=== PATIENT | female | born 1930 | race Caucasian/White ===

== ENCOUNTER 2016-04-11 14:40 | Emergency (ER) | payer MEDICARE, BC ==
[2014-12-17 09:44] VITALS: BMI 21.7
[~2016-04-11 14:40] MED LIST: ARICEPT5 MG PO; CIPRO250 MG PO; COSOPT EYE DROPS5 ML EACH EYE; HYDRALAZINE HCL10 MG PO; LOPRESSOR25 MG PO; TRAZODONE HCL50 MG PO; XALATAN 0.0052.5 ML EACH EYE
[2016-04-11 15:21] LABS: BASOPHILS 0.3 % (0.0-2.0); EOSINOPHILS 0.8 % (0-7); HEMATOCRIT 37.6 % (36.0-48.0); HEMOGLOBIN 12.1 g/dL (12-16); IMMATURE GRANULOCYTES 0.3 % (0-5); LYMPHOCYTES 25.3 % (15-50); MCH 31.1 pg (26.0-34.0); MCHC 32.2 g/dL (31.0-37.0); MCV 96.7 fL (80.0-100.0); MEAN PLATELET VOLUME 9.3 fL (7.4-10.4); MONOCYTES 12.9 % (2-11); NEUTROPHILS 60.4 % (40-80); PLATELET COUNT 231 10x3/uL (130-400); RBC 3.89 10x6/uL (4.00-5.40); RDW 13.7 % (11.5-14.5); WBC 7.2 10x3/uL (4.8-10.8)
[2016-04-11 15:36] LABS: ALBUMIN 3.5 g/dL (3.4-5.0); ALKALINE PHOSPHATASE 84 U/L (46-116); ALT (SGPT) 25 U/L (10-68); BILIRUBIN - TOTAL 0.15 mg/dL (0.2-1.3); CALC OSMOLALITY 270 mosm/kg (275-300); CALCIUM 8.6 mg/dL (8.5-10.1); CARBON DIOXIDE 23.3 mmol/L (21.0-32.0); CHLORIDE - SERUM 101 mmol/L (98-107); GLUCOSE 96 mg/dL (74-106); POTASSIUM - SERUM 3.9 mmol/L (3.5-5.1); PROTEIN - SERUM 6.5 g/dL (6.4-8.2); SODIUM 135 mmol/L (136-145); UREA NITROGEN 14 mg/dL (7-18); eGFR NON AFRICAN AMERICAN 55 mL/min (90-120)
[2016-04-11 15:45] LABS: CREATINE KINASE 51 UL (21-215); PRO BNP 341 pg/mL (0-450)
[2016-04-11 15:47] LABS: TROPONIN-I < 0.017 ng/mL (0.000-0.060)
== END 2016-04-11 17:20 | disposition home or self-care (01) ==
LOC: D.ER 14:40
PROVIDERS: Emergency Medicine
DX: R09.02 Hypoxemia (principal); C50.919 Malignant neoplasm of unspecified site of unspecified female breast; I10 Essential (primary) hypertension

== ENCOUNTER 2016-04-14 21:14 | Inpatient (IN) | payer MEDICARE, BC ==
[~2016-04-14] VITALS: Ht 158.8 cm; Wt 50.4 kg
[2016-04-14 22:06] LABS: BASOPHILS 0.3 % (0.0-2.0); HEMATOCRIT 37.7 % (36.0-48.0); HEMOGLOBIN 12.1 g/dL (12-16); IMMATURE GRANULOCYTES 0.2 % (0-5); LYMPHOCYTES 24.9 % (15-50); MCH 31.2 pg (26.0-34.0); MCHC 32.1 g/dL (31.0-37.0); MCV 97.2 fL (80.0-100.0); MEAN PLATELET VOLUME 9.1 fL (7.4-10.4); MONOCYTES 13.4 % (2-11); NEUTROPHILS 60.2 % (40-80); PLATELET COUNT 263 10x3/uL (130-400); RBC 3.88 10x6/uL (4.00-5.40); RDW 13.7 % (11.5-14.5); WBC 9.8 10x3/uL (4.8-10.8)
[2016-04-14 22:36] LABS: ALBUMIN 3.8 g/dL (3.4-5.0); ALKALINE PHOSPHATASE 82 U/L (46-116); ALT (SGPT) 24 U/L (10-68); CALC OSMOLALITY 269 mosm/kg (275-300); CARBON DIOXIDE 23.8 mmol/L (21.0-32.0); CHLORIDE - SERUM 100 mmol/L (98-107); GLUCOSE 94 mg/dL (74-106); POTASSIUM - SERUM 3.9 mmol/L (3.5-5.1); PROTEIN - SERUM 7.2 g/dL (6.4-8.2); SODIUM 135 mmol/L (136-145); UREA NITROGEN 12 mg/dL (7-18); eGFR NON AFRICAN AMERICAN 55 mL/min (90-120)
[2016-04-14 22:45] LABS: PRO BNP 214 pg/mL (0-450); TROPONIN-I < 0.017 ng/mL (0.000-0.060)
[2016-04-14 22:47] LABS: APPEARANCE CLEAR (CLEAR); COLOR YELLOW (YELLOW)
[2016-04-14 22:48] LABS: BILIRUBIN NEGATIVE (NEGATIVE); GLUCOSE NEGATIVE (NEGATIVE); KETONE NEGATIVE (NEGATIVE); LEUKOCYTE ESTERASE NEGATIVE (NEGATIVE); NITRITE NEGATIVE (NEGATIVE); PROTEIN NEGATIVE (NEGATIVE); UROBILINOGEN NORMAL (NORMAL)
[2016-04-15] MEDS ORDERED: CHOLESTYRAMIN4 G/PK1 PO (02:00)
--- NOTE | 2016-04-15 02:00 | NUR ---
PT ARRIVES FROM ER VIA WC TO ROOM 2126. PLACED ON TELE, HR 50'S AND CAF. PT IS SLOW TO PROCESS, ANSWERS ALL QUESTIONS APPROPRIATELY. PT IS ALERT AND ORIENTED X4. MEDICATION RECONCILIATION COMPLETED AT THE BEDSIDE. ADMISSION ASSESSMENT AND HISTORY COMPLETED. CALL LIGHT PLACED WITHIN REACH. WILL CONT TO MONITOR.
[2016-04-15] MEDS ORDERED: BAYER CHEWABLE81 MG PO (02:01)
[2016-04-15 02:02] VITALS: BP 129/69
[2016-04-15 05:59] VITALS: BP 134/54
--- NOTE | 2016-04-15 07:05 | NUR ---
PT ASSISTED TO BATHROOM PER SON TOLERATING WELL NAD NOTED
[2016-04-15 07:41] VITALS: BP 154/76
--- NOTE | 2016-04-15 08:25 | NUR ---
AM MEDS GIVEN PT TOLERATED WELL
[2016-04-15 12:05] VITALS: BP 145/67
[2016-04-15 13:01] VITALS: Ht 158.8 cm; Wt 50.4 kg
--- NOTE | 2016-04-15 14:02 | NUR ---
SCD'S ON BILATERAL LE
[2016-04-15 14:20] LABS: T4 THYROXIN - FREE 1.42 ng/dL (0.76-1.46); THYROID STIMULATING HORMONE 0.9 uIU/mL (0.36-3.74)
--- NOTE | 2016-04-15 15:40 | NUR ---
CALMOSEPTINE APPLIED TO PERINIUM REDNESS AND EXCORIATION PT TOLERATED WELL STATES FEELS MUCH BETTER
[2016-04-15 16:05] VITALS: BP 157/65
--- NOTE | 2016-04-15 19:00 | NUR ---
RECEIVED REPORT AND ASSUMED PT CARE FROM DAY SHIFT NURSE @ THIS TIME.
[2016-04-15 20:37] VITALS: BP 155/75
[2016-04-16 00:52] VITALS: BP 129/60
[2016-04-16 05:04] VITALS: BP 111/62
--- NOTE | 2016-04-16 07:30 | NUR ---
RESTING QUIETLY AAOX4 DENIES ANY NEEDS OR DISCOMFORT NAD NOTED BED LOW POSITION CALL LIGHT IN REACH BED ALARM ON SCDs ON AND PATENT
[2016-04-16 08:23] VITALS: BP 154/79
--- NOTE | 2016-04-16 09:29 | NUR ---
Patient Name: MARIO GREENE Admission Status: ER Admission Date: 04-15-2016 : 1930 Admission Diagnosis:WEAKNESS Attending: CESAR Current LOS: 1 Anticipated DC Date: 04-16-2016 Planned Disposition: Primary Insurance: MEDICARE A & B Discharge Planning Comments: CM met with patient to discuss discharge planning/needs. The patient told CM she resides alone at home and fell in her kitchen. CM spoke with patient's sister "Beena Langston" ([phone]) who states the patient resided in Independent Living at [facility] prior to this admission and that she had recently been discharged from [facility] just last week. Patient is currently pleasantly confused. CM left for patient's son "William Greene" ([phone]) to return call to in order to discuss discharge planning/needs. CM to follow and assist as needed. Speech Professor: Gilma Iraheta RN/LUANNE . Question Answer Score * How many steps to enter\\exit or inside your home? 15? 0 * PCP [facility] 0 * Pharmacy [facility]? 0 * Other Environment Independent Living at [facility] 0 * ADLs Partial Dependent 0 * Partial ADLs (Assistance needed) Ambulation Bathing Medication Management 0 * Equipment Bedside Commode Shower Chair Walker 0 * List name and contact numbers for known caregivers / representatives who currently or will assist patient after discharge: William Greene (son) [phone] Beena Langston 0 * Community resources currently utilized Home Health 0 * Please name any agencies selected above. [facility] (per pts sister) 0 * Additional services required to return to the preadmission environment? Yes 0 * Can the patient safely return to the preadmission environment? Yes 0 * Has this patient been hospitalized within the prior 30 days at any hospital? Yes 0 Grand Total: 0
--- NOTE | 2016-04-16 11:21 | NUR ---
LUANNE spoke with "Nemo" at [facility] ([phone]) and requested patient information be faxed to Vera ([phone] fax). Information faxed as requested. "Nemo" stated she has spoken to patient's son and will contact CM with determination. CM to follow and assist as needed. Gilma Iraheta RN/LUANNE
[2016-04-16 12:03] VITALS: BP 123/66
--- NOTE | 2016-04-16 14:03 | NUR ---
Patient Name: MARIO GAN Encounter No: [id number] : 1930 Primary Insurance: MEDICARE A & B Anticipated DC Date: 04-16-2016 Planned Disposition: External Planned Provider: : DCP follow-up note: CM spoke with patient's son "William" at bedside. Son states he has spoken with [facility] but decision is pending Dr. Gan's determination following consult. CM spoke with [facility] who states Psych consult was never received. Original consult printed and refaxed 04/16/16 at 1400. Case management will follow and assist as needed. Gilma Iraheta RN/CM
--- NOTE | 2016-04-16 14:22 | NUR ---
Patient Name: MARIO GAN Encounter No: [id number] : 1930 Primary Insurance: MEDICARE A & B Anticipated DC Date: 04-16-2016 Planned Disposition: External Planned Provider: : REYP follow-up note: LUANNE spoke with "Micah" in [facility] (ext [phone]) who verifies Dr. Gan's consult now received. LUANNE also spoke with "Uzma" in [facility] who states Dr. Dean is now production manufacturing worker for Dr. Gan. LUANNE also spoke with "Uzma" who will evaluate patient and communicate with Dr. Dean this afternoon. Case management will follow and assist as needed. Gilma Iraheta RN/LUANNE
--- NOTE | 2016-04-16 14:55 | NUR ---
assessed pt for dr. schmidt in regards to possible placement on retirement. pt was depressed but not suicidal. pt was oriented to person, place, and time. no aggression noted. when i asked pt if she would be willing to come to retirement if dr. schmidt felt she was appropriate, she said no, "i want to go home". pt does not meet criteria for retirement per dr. schmidt. social welfare research worker amanda maldonado from retirement helped to educate pt's son on discharge options and assistance.
--- NOTE | 2016-04-16 15:37 | NUR ---
Entered Type Comment Reviewer 04/16/2016 15:23 DCP: Discharge Planning Patient Name: RUTHIE GAN Encounter No: [id number] : 1930 Primary Insurance: MEDICARE A & B Anticipated DC Date: 04-16-2016 Planned Disposition: External Planned Provider: : JENN follow-up note: Psych Evaluation completed. Patient denied by Nursing Home. CM spoke with "Hermes" at [facility] ([phone]) who states they will accept patient back to [facility] with Resumption of Care per [facility] services. The patient's son "William Gan" states he will be the patient's transportation back to [facility]. Son also states his plan is to eventually move the patient to [facility]. CM spoke with "Ruthie" at [facility] ([phone]) and SHWETHA orders faxed to [place] ([phone] fax). CM to follow and assist as needed. Gilma Iraheta RN/LUANNE
[2016-04-16 15:58] VITALS: BP 158/70
--- NOTE | 2016-04-16 16:10 | NUR ---
Patient Name: MARIO GAN Encounter No: [id number] : 1930 Primary Insurance: MEDICARE A & B Anticipated DC Date: 04-16-2016 Planned Disposition: Home External Planned Provider: [facility] DCP follow-up note: CM CALLED [facility], , SPOKE TO JEOVANNY AND PROVIDED NOTICE OF DISCHARGE, FAXED DISCHARGE INFORMATION TO [facility] AT [phone]. PT'S SON REPORTS AGREEMENT WITH DISCHARGE PLAN, HE WILL TRANSPORT PT TO [facility] AT DISCHARGE TODAY. NO FURHTER DISCHARGE INFORMATION NEEDED. Margarito Welch, CASE MANAGEMENT
[2016-04-16] MEDS ORDERED: LEXAPRO5 MG PO (18:08)
--- NOTE | 2016-04-16 18:48 | NUR ---
[facility] DCD TO LFS WITH 20 GA IV CATH INTACT SITE FREE OF REDNESS OR EDEMA PT DISCHARGED HOME IN STABLE CONDITION LEFT UNIT VIA W/C WITH ALL PERSONAL BELONGINGS
--- NOTE | 2016-04-17 12:54 | CN ---
PATIENT NAME:MARIO GAN MEDICAL RECORD: [id number] : [birth year] LOCATION:[facility] D.2127 ADMIT DATE: 04/15/16 ACCOUNT: [id number] CONSULTING PHYSICIAN: YARED BA MD REFERRING PHYSICIAN: RADHA WALTERS MD DATE OF CONSULTATION: 04/16/2016 IDENTIFYING DATA: The patient is 86 years old and she is admitted to the hospital on a voluntary basis secondary to altered mental status. CHIEF COMPLAINT: None. HISTORY OF PRESENT ILLNESS: The patient is a very nice lady who is quite cooperative. She lives in an assisted living and apparently, she has exhibited some confusion and wandering behaviors there. She has recognition that she is having trouble, but is a little bit uncertain about specifics. She freely admits she is depressed, but says she is not suicidal. She freely admits that she is having trouble with her memory, but is minimizing the amount. She denies substance abuse and certainly has no psychotic symptoms or evidence of direct dangerousness to herself or others. MENTAL STATUS EXAMINATION: The patient is awake, alert and oriented to person, place, somewhat to time and somewhat to situation. Her mood is depressed. Her affect is constricted. Thought processes are circumstantial. Memory, concentration and abstraction abilities are moderately impaired and she denies any active intent to harm herself or others as well as overt psychotic symptoms. ASSESSMENT: 1. Senile dementia of the Alzheimer's type. 2. Major depressive disorder, moderate severity without psychotic features. PLAN: At this time, the patient is not acutely or directly dangerous. That is to say she is not out of touch with reality, not threatening to harm herself or others, and for this reason, does not meet Medicare criteria for inpatient evaluation. She certainly is in need of supervision and her safety could be in jeopardy if she is not properly supervised, but unfortunately that is not sufficient grounds for admitting her to the behavioral unit. She is taking Aricept and so clearly there has been suspicion of cognitive decline in the past. She is taking a low dose of trazodone and I suspect that is for its hypnotic effect rather than antidepressant effect. I would recommend adding Zoloft 50 mg daily to her current regimen. I would also recommend followup with Dr. Leida Haider for neuropsychological testing and I would recommend some sort of social economist intervention to ensure that she has adequate supervision. Psychiatric followup may or may not be necessary depending upon her response to the Zoloft and her personal preferences regarding the addition of another doctor to her treatment team. TRANSINT:[id number] Voice Confirmation ID: [id number] DOCUMENT ID: [id number] CONSULT REPORT [id number] MARIO GAN PETER MD at 1254 CC: [id number] DICTATION DATE: 04/16/16 1247 WARP COILER: 04/16/16 1418 DIS IN 04/16/16 [facility] [address] [place] [address]
== END 2016-04-16 18:48 | disposition home health service (06) | DRG 884 ==
LOC: D.ER 21:14 → D.M2 04-15 00:53
PROVIDERS: Family Medicine; ADMIT Family Medicine
DX: F03.90 Unspecified dementia, unspecified severity, without behavioral disturbance, psychotic disturbance, mood disturbance, and anxiety (principal); F32.1 Major depressive disorder, single episode, moderate; M48.54XD Collapsed vertebra, not elsewhere classified, thoracic region, subsequent encounter for fracture with routine healing; R41.0 Disorientation, unspecified; H40.9 Unspecified glaucoma; I10 Essential (primary) hypertension; L89.151 Pressure ulcer of sacral region, stage 1; Z85.3 Personal history of malignant neoplasm of breast; Z86.73 Personal history of transient ischemic attack (TIA), and cerebral infarction without residual deficits

== ENCOUNTER 2017-07-25 09:03 | Inpatient (IN) | payer MEDICARE, BC ==
[~2017-07-25] VITALS: Ht 157.5 cm; Wt 41.5 kg
[~2017-07-25 09:03] MED LIST changes: +BAYER CHEWABLE81 MG PO; +CHOLESTYRAMIN4 G/PK1 PO; +LEXAPRO5 MG PO
[2017-07-25 09:28] LABS: BASOPHILS 0.1 % (0-2); EOSINOPHILS 0.1 % (0-7); HEMATOCRIT 38.2 % (36.0-48.0); HEMOGLOBIN 12.9 g/dL (12-16); IMMATURE GRANULOCYTES 0.3 % (0-5); LYMPHOCYTES 13.8 % (15-50); MCH 31.5 pg (26.0-34.0); MCHC 33.8 g/dL (31.0-37.0); MCV 93.2 fL (80.0-100.0); MEAN PLATELET VOLUME 9.2 fL (7.4-10.4); MONOCYTES 13.9 % (2-11); NEUTROPHILS 71.8 % (40-80); RDW 13.4 % (11.5-14.5); WBC 15.4 10x3/uL (4.8-10.8)
[2017-07-25 09:30] LABS: PLATELET COUNT 349 10x3/uL (130-400)
[2017-07-25 09:51] LABS: ALBUMIN 2.8 g/dL (3.4-5.0); BILIRUBIN - TOTAL 0.6 mg/dL (0.2-1.3); CALCIUM 9.9 mg/dL (8.5-10.1); CARBON DIOXIDE 25.2 mmol/L (21.0-32.0); POTASSIUM - SERUM 3.2 mmol/L (3.5-5.1); PROTEIN - SERUM 8.4 g/dL (6.4-8.2)
[2017-07-25 12:14] LABS: APPEARANCE CLEAR (CLEAR); BILIRUBIN NEGATIVE (NEGATIVE); COLOR YELLOW (YELLOW); GLUCOSE NEGATIVE (NEGATIVE); KETONE MODERATE mg/dL (NEGATIVE); NITRITE NEGATIVE (NEGATIVE); PROTEIN TRACE mg/dL (NEGATIVE); UROBILINOGEN NORMAL (NORMAL)
[2017-07-25 12:15] LABS: BACTERIA MODERATE /hpf (NONE SEEN); EPITHELIAL CELLS 0-5 /hpf (0-5); GRANULAR CAST RARE /lpf (NONE SEEN); MUCUS >1+ /lpf (NONE SEEN); WHITE CELLS - URINE 0-5 /hpf (0-5)
[2017-07-25 19:49] VITALS: BP 161/108
[2017-07-25 20:03] VITALS: BP 189/123
[2017-07-25 22:56] VITALS: BMI 19.6
[2017-07-25 23:02] VITALS: BP 156/80
[2017-07-26 03:30] VITALS: BP 169/85
[2017-07-26 07:47] LABS: BASOPHILS 0.1 % (0-2); EOSINOPHILS 0.1 % (0-7); HEMATOCRIT 35.9 % (36.0-48.0); IMMATURE GRANULOCYTES 0.3 % (0-5); LYMPHOCYTES 8.1 % (15-50); MCH 31.2 pg (26.0-34.0); MCHC 33.4 g/dL (31.0-37.0); MCV 93.2 fL (80.0-100.0); MEAN PLATELET VOLUME 9.5 fL (7.4-10.4); MONOCYTES 13.3 % (2-11); NEUTROPHILS 78.1 % (40-80); PLATELET COUNT 319 10x3/uL (130-400); RBC 3.85 10x6/uL (4.00-5.40); RDW 13.7 % (11.5-14.5); WBC 14.3 10x3/uL (4.8-10.8)
[2017-07-26 08:09] LABS: CALC OSMOLALITY 270 mosm/kg (275-300); CALCIUM 9.6 mg/dL (8.5-10.1); CARBON DIOXIDE 23.3 mmol/L (21.0-32.0); CHLORIDE - SERUM 99 mmol/L (98-107); CREATININE - SERUM 0.7 mg/dL (0.6-1.3); GLUCOSE 95 mg/dL (74-106); POTASSIUM - SERUM 3.4 mmol/L (3.5-5.1); SODIUM 136 mmol/L (136-145); UREA NITROGEN 11 mg/dL (7-18); eGFR NON AFRICAN AMERICAN 83 mL/min (90-120)
[2017-07-26 15:20] VITALS: Ht 157.5 cm; Wt 41.5 kg
[2017-07-26 20:00] VITALS: BP 160/91
[2017-07-27] VITALS (7 sets, daily range): BP systolic 139–178; BP diastolic 63–92
[2017-07-27 06:15] LABS: BASOPHILS 0.1 % (0-2); EOSINOPHILS 0.1 % (0-7); HEMATOCRIT 35.6 % (36.0-48.0); IMMATURE GRANULOCYTES 0.3 % (0-5); LYMPHOCYTES 7.4 % (15-50); MCH 31.4 pg (26.0-34.0); MCHC 33.7 g/dL (31.0-37.0); MCV 93.2 fL (80.0-100.0); MEAN PLATELET VOLUME 9.4 fL (7.4-10.4); MONOCYTES 15.2 % (2-11); NEUTROPHILS 76.9 % (40-80); PLATELET COUNT 364 10x3/uL (130-400); RBC 3.82 10x6/uL (4.00-5.40); RDW 13.7 % (11.5-14.5); WBC 15.2 10x3/uL (4.8-10.8)
[2017-07-27 06:32] LABS: ALBUMIN 2.2 g/dL (3.4-5.0); ANION GAP 18.4 mmol/L (8-16); BILIRUBIN - TOTAL 0.5 mg/dL (0.2-1.3); CALCIUM 9.5 mg/dL (8.5-10.1); CARBON DIOXIDE 22.7 mmol/L (21.0-32.0); POTASSIUM - SERUM 3.1 mmol/L (3.5-5.1); PROTEIN - SERUM 7.2 g/dL (6.4-8.2)
[2017-07-28 04:05] VITALS: BP 171/78
[2017-07-28 05:09] LABS: BASOPHILS 0.2 % (0-2); EOSINOPHILS 0.9 % (0-7); HEMATOCRIT 36.2 % (36.0-48.0); IMMATURE GRANULOCYTES 0.2 % (0-5); LYMPHOCYTES 7.2 % (15-50); MCH 31.3 pg (26.0-34.0); MCHC 33.1 g/dL (31.0-37.0); MCV 94.5 fL (80.0-100.0); MEAN PLATELET VOLUME 9.5 fL (7.4-10.4); MONOCYTES 13.8 % (2-11); NEUTROPHILS 77.7 % (40-80); PLATELET COUNT 369 10x3/uL (130-400); RBC 3.83 10x6/uL (4.00-5.40); RDW 13.8 % (11.5-14.5); WBC 12.8 10x3/uL (4.8-10.8)
[2017-07-28 05:22] LABS: BILIRUBIN - TOTAL 0.19 mg/dL (0.2-1.3); CALCIUM 9.4 mg/dL (8.5-10.1); CREATININE - SERUM 0.8 mg/dL (0.6-1.3); PROTEIN - SERUM 7.1 g/dL (6.4-8.2)
[2017-07-28 08:05] VITALS: BP 92/57
[2017-07-28 11:49] VITALS: BP 145/69
[2017-07-28 16:05] VITALS: BP 89/48
[2017-07-28 19:54] VITALS: BP 163/60
[2017-07-29 01:30] VITALS: BP 150/65
[2017-07-29 04:40] VITALS: BP 142/78
[2017-07-29 05:57] LABS: BASOPHILS 0.2 % (0-2); EOSINOPHILS 0.1 % (0-7); HEMOGLOBIN 10.7 g/dL (12-16); IMMATURE GRANULOCYTES 0.3 % (0-5); LYMPHOCYTES 5.8 % (15-50); MCH 30.7 pg (26.0-34.0); MCHC 32.4 g/dL (31.0-37.0); MCV 94.6 fL (80.0-100.0); MEAN PLATELET VOLUME 9.2 fL (7.4-10.4); MONOCYTES 18.7 % (2-11); NEUTROPHILS 74.9 % (40-80); PLATELET COUNT 354 10x3/uL (130-400); RBC 3.49 10x6/uL (4.00-5.40); RDW 13.7 % (11.5-14.5); WBC 15.2 10x3/uL (4.8-10.8)
[2017-07-29 06:41] LABS: ALBUMIN 1.7 g/dL (3.4-5.0); BILIRUBIN - TOTAL 0.24 mg/dL (0.2-1.3); CALCIUM 9.1 mg/dL (8.5-10.1); CARBON DIOXIDE 29.5 mmol/L (21.0-32.0); CREATININE - SERUM 0.9 mg/dL (0.6-1.3); PROTEIN - SERUM 6.6 g/dL (6.4-8.2)
[2017-07-29 06:43] LABS: ANION GAP 10.3 mmol/L (8-16)
[2017-07-29 06:55] LABS: POTASSIUM - SERUM 2.8 mmol/L (3.5-5.1)
[2017-07-29 07:54] VITALS: BP 174/80
[2017-07-29 11:53] VITALS: BP 157/68
[2017-07-29 16:35] VITALS: BP 130/58
[2017-07-29 17:34] LABS: VANCOMYCIN - TROUGH 14.4 ug/mL (10.0-20.0)
[2017-07-29 20:20] VITALS: BP 154/106
[2017-07-30 00:41] VITALS: BP 157/71
[2017-07-30 05:57] VITALS: BP 141/97
[2017-07-30 06:47] LABS: BASOPHILS 0.3 % (0-2); EOSINOPHILS 1.4 % (0-7); HEMATOCRIT 32.6 % (36.0-48.0); HEMOGLOBIN 10.4 g/dL (12-16); IMMATURE GRANULOCYTES 0.2 % (0-5); LYMPHOCYTES 8.4 % (15-50); MCH 30.4 pg (26.0-34.0); MCHC 31.9 g/dL (31.0-37.0); MCV 95.3 fL (80.0-100.0); MEAN PLATELET VOLUME 9.4 fL (7.4-10.4); MONOCYTES 15.6 % (2-11); NEUTROPHILS 74.1 % (40-80); PLATELET COUNT 360 10x3/uL (130-400); RBC 3.42 10x6/uL (4.00-5.40); RDW 13.8 % (11.5-14.5); WBC 15.3 10x3/uL (4.8-10.8)
[2017-07-30 07:09] LABS: ALBUMIN 1.6 g/dL (3.4-5.0); ALKALINE PHOSPHATASE 69 U/L (46-116); ALT (SGPT) 16 U/L (10-68); BILIRUBIN - TOTAL 0.24 mg/dL (0.2-1.3); CALC OSMOLALITY 277 mosm/kg (275-300); CALCIUM 9.4 mg/dL (8.5-10.1); CARBON DIOXIDE 25.8 mmol/L (21.0-32.0); CHLORIDE - SERUM 103 mmol/L (98-107); CREATININE - SERUM 0.7 mg/dL (0.6-1.3); GLUCOSE 126 mg/dL (74-106); MAGNESIUM - SERUM 1.9 mg/dL (1.8-2.4); POTASSIUM - SERUM 3.9 mmol/L (3.5-5.1); PROTEIN - SERUM 6.6 g/dL (6.4-8.2); SODIUM 138 mmol/L (136-145); UREA NITROGEN 13 mg/dL (7-18); eGFR NON AFRICAN AMERICAN 83 mL/min (90-120)
[2017-07-30 08:11] VITALS: BP 158/72
[2017-07-30 11:22] VITALS: BP 152/73
[2017-07-30 15:29] VITALS: BP 171/65
[2017-07-30 21:35] VITALS: BP 158/79
[2017-07-31 00:46] VITALS: BP 146/71
[2017-07-31 05:39] VITALS: BP 155/73
[2017-07-31 06:17] LABS: BASOPHILS 0.2 % (0-2); EOSINOPHILS 3.5 % (0-7); HEMATOCRIT 31.3 % (36.0-48.0); HEMOGLOBIN 10.3 g/dL (12-16); IMMATURE GRANULOCYTES 0.2 % (0-5); LYMPHOCYTES 10.6 % (15-50); MCH 30.7 pg (26.0-34.0); MCHC 32.9 g/dL (31.0-37.0); MCV 93.4 fL (80.0-100.0); MEAN PLATELET VOLUME 9.1 fL (7.4-10.4); MONOCYTES 14.1 % (2-11); NEUTROPHILS 71.4 % (40-80); PLATELET COUNT 403 10x3/uL (130-400); RBC 3.35 10x6/uL (4.00-5.40); RDW 13.9 % (11.5-14.5); WBC 12.8 10x3/uL (4.8-10.8)
[2017-07-31 06:40] LABS: ALBUMIN 1.6 g/dL (3.4-5.0); ANION GAP 10.8 mmol/L (8-16); BILIRUBIN - TOTAL 0.21 mg/dL (0.2-1.3); CALCIUM 9.3 mg/dL (8.5-10.1); CARBON DIOXIDE 28.3 mmol/L (21.0-32.0); CREATININE - SERUM 0.8 mg/dL (0.6-1.3); POTASSIUM - SERUM 4.1 mmol/L (3.5-5.1); PROTEIN - SERUM 6.5 g/dL (6.4-8.2)
[2017-07-31 08:51] VITALS: BP 191/98
[2017-07-31 12:13] VITALS: BP 170/85
[2017-07-31 16:32] VITALS: BP 177/80
[2017-07-31 20:00] VITALS: BP 164/70
[2017-08-01] VITALS: BP 157/73
[2017-08-01 04:00] VITALS: BP 179/86
[2017-08-01 07:57] VITALS: BP 183/78
[2017-08-01 11:16] VITALS: BP 167/63
[2017-08-01 15:16] VITALS: BP 154/83
[2017-08-01 20:18] VITALS: BP 147/69
[2017-08-02 00:39] VITALS: BP 120/65
[2017-08-02 06:11] VITALS: BP 136/69
[2017-08-02 08:17] VITALS: BP 155/81
[2017-08-02 11:43] VITALS: BP 164/86
[2017-08-02 15:36] VITALS: BP 143/63
[2017-08-02 20:47] VITALS: BP 142/62
== END 2017-08-02 20:55 | disposition hospice, inpatient (51) | DRG 689 ==
LOC: D.ER 09:03 → D.EDHOLD 15:30 → OBSVTIME 15:31 → D.M2 07-26 18:49 → D.SDCHOLD 08-02 07:15 → D.M2 08-02 20:55
PROVIDERS: Family Medicine
DX: N39.0 Urinary tract infection, site not specified (principal); E43 Unspecified severe protein-calorie malnutrition; Z68.1 Body mass index [BMI] 19.9 or less, adult; F03.90 Unspecified dementia, unspecified severity, without behavioral disturbance, psychotic disturbance, mood disturbance, and anxiety; I10 Essential (primary) hypertension; Z66 Do not resuscitate; F32.9 Major depressive disorder, single episode, unspecified; M19.011 Primary osteoarthritis, right shoulder; Z85.3 Personal history of malignant neoplasm of breast; Z86.73 Personal history of transient ischemic attack (TIA), and cerebral infarction without residual deficits